=== PATIENT | male | born 1940 | race Caucasian/White ===

== ENCOUNTER 2017-12-30 06:58 | Day surgery (SDC) | payer OTHER ==
[~2017-12-30] VITALS: Ht 182.9 cm; Wt 103.4 kg
[~2017-12-30 06:58] MED LIST: ACET325 PO; ASCO500 PO; ASPI325 PO; ATOR40TA PO; CEFP200 PO; DAILY VALUE1 EACH PO; DICL75ER PO; OXYB5ER PO; Omeprazole20 M1 PO; TAMS.4ER PO
== END 2017-12-30 23:16 | disposition home or self-care (01) ==
LOC: ORSCMMR 06:58 → ORD 09:00 → ORSCMMR 09:00
PROVIDERS: Internal Medicine Gastroenterology
PROC: 0DBN8ZX Excision of Sigmoid Colon, Via Natural or Artificial Opening Endoscopic, Diagnostic (ICD-10-PCS; principal; 2017-12-30 09:00)
DX: K92.1 Melena (principal); K63.5 Polyp of colon; K21.9 Gastro-esophageal reflux disease without esophagitis; K57.30 Diverticulosis of large intestine without perforation or abscess without bleeding; K64.8 Other hemorrhoids; I25.10 Atherosclerotic heart disease of native coronary artery without angina pectoris; Z79.82 Long term (current) use of aspirin; Z79.899 Other long term (current) drug therapy
CPT/HCPCS: J7030

== ENCOUNTER → 2018-01-02 | Outpatient (CLI) | payer OTHER | END | disposition home or self-care (01) | LOC: LAB SHORT 07:24 → PLD 07:24 | DX: L85.8 Other specified epidermal thickening (principal) | CPT/HCPCS: 88305; 88312 ==

== ENCOUNTER → 2018-01-06 | Outpatient (CLI) | payer OTHER | LOC: LAB SHORT 07:54 → PLD 07:54 | DX: D49.2 Neoplasm of unspecified behavior of bone, soft tissue, and skin (principal); D04.4 Carcinoma in situ of skin of scalp and neck | CPT/HCPCS: 88305 ==

== ENCOUNTER → 2019-06-09 | Outpatient (CLI) | payer OTHER | END | disposition home or self-care (01) | LOC: PLD 14:56 → LAB SHORT 14:56 | DX: D04.4 Carcinoma in situ of skin of scalp and neck (principal); L82.1 Other seborrheic keratosis | CPT/HCPCS: 88305; 88342 ==

== ENCOUNTER → 2020-06-02 | Outpatient (CLI) | payer OTHER | END | disposition home or self-care (01) | LOC: PLD 08:03 → LAB SHORT 08:03 | DX: L57.0 Actinic keratosis (principal) | CPT/HCPCS: 88305 ==

== ENCOUNTER → 2020-09-13 | Outpatient (CLI) | payer OTHER | END | disposition home or self-care (01) | LOC: LAB SHORT 07:34 → LAB 07:34 | DX: L90.5 Scar conditions and fibrosis of skin (principal); L08.89 Other specified local infections of the skin and subcutaneous tissue | CPT/HCPCS: 88305 ==

== ENCOUNTER 2022-06-28 07:18 | Day surgery (SDC) | payer OTHER ==
[~2022-06-28] VITALS: Ht 180.3 cm; Wt 102.4 kg
[2022-06-28] MEDS ORDERED: Aspir 8181 MG PO (07:36)
== END 2022-06-28 09:11 | disposition home or self-care (01) ==
LOC: ORSCSDS 07:18
PROVIDERS: Ophthalmology
PROC: 08DK3ZZ Extraction of Left Lens, Percutaneous Approach (ICD-10-PCS; principal; 2022-06-28 08:30)
PROC: 08DJ3ZZ Extraction of Right Lens, Percutaneous Approach (ICD-10-PCS; principal; 2022-06-28 08:30)
DX: H25.12 Age-related nuclear cataract, left eye (principal); I25.10 Atherosclerotic heart disease of native coronary artery without angina pectoris; K21.9 Gastro-esophageal reflux disease without esophagitis; I25.2 Old myocardial infarction; E66.9 Obesity, unspecified; Z68.31 Body mass index [BMI] 31.0-31.9, adult
CPT/HCPCS: J2001; J2250; J3010; J3301; J7040; V2632

== ENCOUNTER 2022-11-19 10:26 | Emergency (ER) | payer OTHER ==
[~2022-11-19] VITALS: Ht 182.9 cm; Wt 101.2 kg
[~2022-11-19 10:26] MED LIST changes: +Aspir 8181 MG PO
[2022-11-19 10:52] LABS: BASOPHILS ABSOLUTE AUTO 0.02 K/mm3 (0.00-0.23); BASOPHILS PERCENT AUTO 0 % (0-2); EOSINOPHILS ABSOLUTE AUTO 0.16 K/mm3 (0.00-0.68); EOSINOPHILS PERCENT AUTO 3 % (0-6); Hemoglobin 12.9 g/dL (13.5-17.5); IMMATURE GRAN ABSOLUTE AUTO 0.01 K/mm3 (0.00-0.10); IMMATURE GRAN PERCENT AUTO 0 % (0-1); LYMPHOCYTES ABSOLUTE AUTO 1.32 K/mm3 (0.84-5.20); LYMPHOCYTES PERCENT AUTO 23 % (21-46); MONOCYTES ABSOLUTE AUTO 0.46 K/mm3 (0.16-1.47); MONOCYTES PERCENT AUTO 8 % (4-13); Mean Corpuscular HGB 29.8 pg (26.0-34.0); Mean Corpuscular HGB Conc 32.3 g/dL (31.5-36.5); Mean Corpuscular Volume 92 fL (80-100); Mean Platelet Volume 9.5 fL (9.1-12.4); NEUTROPHILS ABSOLUTE AUTO 3.67 K/mm3 (1.96-9.15); NEUTROPHILS PERCENT AUTO 65 % (41-73); Platelet Count 265 K/mm3 (150-400); RDW Coefficient Variation 13.4 % (11.7-14.2); RDW Standard Deviation 46.3 fL (35.1-46.3); Red Blood Cell Count 4.33 M/mm3 (4.30-5.90); White Blood Cell Count 5.64 K/mm3 (4.00-11.30)
[2022-11-19 11:29] LABS: Albumin, Blood 3.4 g/dL (3.4-5.0); Bilirubin, Total 0.5 mg/dL (0.1-1.0); Bun/Creatinine Ratio 23.5 (12.0-20.0); Calcium, Blood 8.3 mg/dL (8.5-10.1); Creatinine, Blood 0.94 mg/dL (0.60-1.20); Globulin, Blood 3.5 g/dL (2.2-4.0); Potassium, Blood 4.2 mmol/L (3.5-5.5); Total Protein, Blood 6.9 g/dL (6.4-8.2)
[2022-11-19 13:51] VITALS: BP 135/72
== END 2022-11-19 13:50 | disposition home or self-care (01) ==
LOC: ER 10:26
PROVIDERS: Emergency Medicine
DX: R55 Syncope and collapse (principal); R42 Dizziness and giddiness; Z79.899 Other long term (current) drug therapy; Z79.82 Long term (current) use of aspirin
CPT/HCPCS: 80053; 85025

== ENCOUNTER → 2022-12-12 | Outpatient (CLI) | payer OTHER | END | disposition home or self-care (01) | LOC: PLD 13:30 → LAB SHORT 13:30 | DX: L72.0 Epidermal cyst (principal); L70.0 Acne vulgaris | CPT/HCPCS: 88305 ==

== ENCOUNTER 2023-01-18 15:56 | Observation (INO) | payer OTHER ==
[~2023-01-18] VITALS: Ht 182.9 cm; Wt 98.0 kg
[2023-01-18] MEDS ORDERED: KLONOPIN0.5 M9 PO (18:20)
[2023-01-18 19:17] LABS: Magnesium, Blood 2.6 mg/dL (1.6-2.4)
[2023-01-18 22:29] LABS: Thyroid Stimulating Hormone 1.87 uIU/mL (0.360-4.800)
[2023-01-18 22:30] VITALS: BP 120/60
--- NOTE | 2023-01-18 22:57 | NUR ---
ASSUMPTION OF CARE: PATIENT ALERT AND ORIENTED X 4 NO CONCERNS OR QUESTIONS. PLEASANT . COOPERATIVE WITH CARE. DENIES CHEST PAIN PRESSURE SOB NO DIZZINESS OR LIGHTHEADEDNESS HERE FOR OBSERVATION. PLAN SHOULD BE ECHO AND SEE IF SYNCOPAL EPISODE IS RELATED OR MURMUR/FLUTTER ED DR. RODRIGEZ WAS CORRELATED. PATIENT ON RA SPO2 > 94%. IV IS A FIELD START FLUSHED WILL NEED TO BE CHANGED SHORTLY IT IS RAC AND UNABLE TO CHANGE CAPS. PATIENT AMBULATES WELL, STILL 1 P SBA TO RESTROOM FOR SAFETY. WILL CONTINUE TO MONITOR UNTIL SHIFT CHANGE VSS
[2023-01-19 03:07] VITALS: BP 109/62
--- NOTE | 2023-01-19 03:12 | NUR ---
END OF SHIFT: PATIENT WITH NO CHANGES TWO VOIDS THROUGH THE NIGHT, UNMEASURED, LARGE, PATIENT ORIENTED, CALLED TO BE AMBULATED TO BATHROOM, INDEPENDENTLY. NO SIGNIFICANT EVENTS, EDUCATED ON FIRE/OXYGEN SAFETY. PATIENT AGREES NOTHING IN CLOTHING. PATIENT STILL DENYING SYNCOPE SYMPTOMS OR CHEST PAINS. WILL CONTINUE TO MONITOR
[2023-01-19 05:30] LABS: BASOPHILS ABSOLUTE AUTO 0.01 K/mm3 (0.00-0.23); BASOPHILS PERCENT AUTO 0 % (0-2); EOSINOPHILS ABSOLUTE AUTO 0.17 K/mm3 (0.00-0.68); EOSINOPHILS PERCENT AUTO 3 % (0-6); Hematocrit 43.2 % (37.0-53.0); Hemoglobin 14.2 g/dL (13.5-17.5); IMMATURE GRAN ABSOLUTE AUTO 0.01 K/mm3 (0.00-0.10); IMMATURE GRAN PERCENT AUTO 0 % (0-1); LYMPHOCYTES ABSOLUTE AUTO 1.45 K/mm3 (0.84-5.20); LYMPHOCYTES PERCENT AUTO 24 % (21-46); MONOCYTES ABSOLUTE AUTO 0.69 K/mm3 (0.16-1.47); MONOCYTES PERCENT AUTO 11 % (4-13); Mean Corpuscular HGB 29.6 pg (26.0-34.0); Mean Corpuscular HGB Conc 32.9 g/dL (31.5-36.5); Mean Corpuscular Volume 90 fL (80-100); Mean Platelet Volume 9.6 fL (9.1-12.4); NEUTROPHILS ABSOLUTE AUTO 3.81 K/mm3 (1.96-9.15); NEUTROPHILS PERCENT AUTO 62 % (41-73); Platelet Count 202 K/mm3 (150-400); RDW Coefficient Variation 13.2 % (11.7-14.2); RDW Standard Deviation 44.1 fL (35.1-46.3); Red Blood Cell Count 4.79 M/mm3 (4.30-5.90); White Blood Cell Count 6.14 K/mm3 (4.00-11.30)
[2023-01-19 06:11] LABS: Albumin, Blood 3.2 g/dL (3.4-5.0); Albumin/Globulin Ratio 0.9 (0.8-1.8); Bilirubin, Total 0.7 mg/dL (0.1-1.0); Bun/Creatinine Ratio 25.8 (12.0-20.0); Calcium, Blood 8.2 mg/dL (8.5-10.1); Creatinine, Blood 0.85 mg/dL (0.60-1.20); Globulin, Blood 3.5 g/dL (2.2-4.0); Total Protein, Blood 6.7 g/dL (6.4-8.2)
--- NOTE | 2023-01-19 08:00 | NUR ---
Received report from Raffaele HALE. Patient was sleeping at start of shift and now awake. He is alert and oriented and is able to communicate his needs. He is on RA and sats >90%. He has urinal at bedside and is able to use independently. he has 20ga IV to RAC and is flushed and SL'd. He MAEW. He still states right elbow pain. Denies any dizziness or chest pain.
[2023-01-19 08:38] VITALS: BP 128/64
--- NOTE | 2023-01-19 09:15 | NUR ---
Patient's at bedside. He is finishing breakfast. Echo just arrived. Dr Wylie has been into see patient and possible discharge home today.
[2023-01-19 12:06] VITALS: BP 117/63
--- NOTE | 2023-01-19 12:23 | NUR ---
Echo results are back and Dr Wylie spoke with patient. He has been up to bathroom independnetly and is very stable. See EMR for VS. Dr Wylie is discharging home without any new medications.
--- NOTE | 2023-01-19 12:46 | NUR ---
Patient received written discharge instructions and retyurned understanding. His RAC IV pulled intact and site WNL. He is getting dressed independently and just arrived and is ready to go home.
== END 2023-01-19 13:10 | disposition home or self-care (01) ==
LOC: ER 15:56 → PCU 15:57
PROVIDERS: Family Medicine; Student in an Organized Health Care Education/Training Program; ADMIT Internal Medicine
DX: R55 Syncope and collapse (principal); I35.0 Nonrheumatic aortic (valve) stenosis; I25.10 Atherosclerotic heart disease of native coronary artery without angina pectoris; F41.9 Anxiety disorder, unspecified; N40.0 Benign prostatic hyperplasia without lower urinary tract symptoms; K21.9 Gastro-esophageal reflux disease without esophagitis; M19.90 Unspecified osteoarthritis, unspecified site; R41.82 Altered mental status, unspecified
CPT/HCPCS: 36415; 70450; 73070; 80053; 83735; 83880; 84443; 84484; 85025; 93005; 93010; 93306; 96372; 99285-25; A9270; G0378; J1650

== ENCOUNTER 2024-04-05 19:05 | Emergency (ER) | payer OTHER ==
[~2024-04-05] VITALS: Ht 182.9 cm; Wt 97.5 kg
[~2024-04-05 19:05] MED LIST changes: +KLONOPIN0.5 M9 PO
[2024-04-05 19:06] VITALS: BP 143/71
== END 2024-04-05 20:15 | disposition home or self-care (01) ==
LOC: ER 19:05
DX: S51.811A Laceration without foreign body of right forearm, initial encounter (principal); I25.10 Atherosclerotic heart disease of native coronary artery without angina pectoris; K21.9 Gastro-esophageal reflux disease without esophagitis; N40.0 Benign prostatic hyperplasia without lower urinary tract symptoms; I25.2 Old myocardial infarction; W18.09XA Striking against other object with subsequent fall, initial encounter; Z79.899 Other long term (current) drug therapy; Z79.82 Long term (current) use of aspirin; Z95.1 Presence of aortocoronary bypass graft
CPT/HCPCS: 12002; 99282-25

== ENCOUNTER → 2024-06-23 | Outpatient (CLI) | payer OTHER | LOC: LAB 15:35 → LAB SHORT 15:35 | DX: L03.031 Cellulitis of right toe (principal) | CPT/HCPCS: 87070; 87077; 87147; 87186; 87205 ==

== ENCOUNTER 2025-07-13 21:48 | Emergency (ER) | payer OTHER ==
[~2025-07-13] VITALS: Ht 182.9 cm; Wt 101.6 kg
[2025-07-13] MEDS ORDERED: METOPROLOL SUCC25 MG PO (22:09)
[2025-07-13 22:18] LABS: BASOPHILS ABSOLUTE AUTO 0.02 K/mm3 (0.00-0.23); BASOPHILS PERCENT AUTO 0 % (0-2); EOSINOPHILS ABSOLUTE AUTO 0.15 K/mm3 (0.00-0.68); EOSINOPHILS PERCENT AUTO 2 % (0-6); Hematocrit 36.2 % (37.0-53.0); Hemoglobin 11.6 g/dL (13.5-17.5); IMMATURE GRAN ABSOLUTE AUTO 0.01 K/mm3 (0.00-0.10); IMMATURE GRAN PERCENT AUTO 0 % (0-1); LYMPHOCYTES ABSOLUTE AUTO 2.67 K/mm3 (0.84-5.20); LYMPHOCYTES PERCENT AUTO 42 % (21-46); MONOCYTES ABSOLUTE AUTO 0.83 K/mm3 (0.16-1.47); MONOCYTES PERCENT AUTO 13 % (4-13); Mean Corpuscular HGB Conc 32.0 g/dL (31.5-36.5); Mean Corpuscular Volume 91 fL (80-100); NEUTROPHILS ABSOLUTE AUTO 2.65 K/mm3 (1.96-9.15); NEUTROPHILS PERCENT AUTO 42 % (41-73); NRBC ABSOLUTE 0.00 K/mm3 (0.00-0.02); NRBC Auto 0.0 /100 WBC (0.0-0.2); Platelet Count 253 K/mm3 (150-400); RDW Coefficient Variation 14.1 % (11.7-14.2); RDW Standard Deviation 47.3 fL (35.1-46.3)
[2025-07-13 22:41] LABS: Alanine Aminotransfer (ALT/SGP 21.0 U/L (12-78); Albumin, Blood 3.5 g/dL (3.4-5.0); Albumin/Globulin Ratio 1.0 (0.8-1.8); Anion Gap 7.0 mmol/L (3-11); Aspartate Aminotrans (AST/SGOT 19.0 U/L (12-37); Bilirubin, Total 0.4 mg/dL (0.1-1.0); Blood Urea Nitrogen 27.0 mg/dL (8-24); CO2, Blood 28.0 mmol/L (21-32); Calcium, Blood 8.5 mg/dL (8.5-10.1); Chloride, Blood 106.0 mmol/L (98-108); Creatinine, Blood 1.06 mg/dL (0.60-1.20); Globulin, Blood 3.4 g/dL (2.2-4.0); Glucose, Blood 141.0 mg/dL (70-99); Potassium, Blood 3.7 mmol/L (3.5-5.5); Sodium, Blood 137.0 mmol/L (136-145); Total Protein, Blood 6.9 g/dL (6.4-8.2)
[2025-07-14 00:45] VITALS: BP 162/71
== END 2025-07-14 00:51 | disposition home or self-care (01) ==
LOC: ER 21:48
PROVIDERS: Emergency Medicine
DX: R55 Syncope and collapse (principal); K21.9 Gastro-esophageal reflux disease without esophagitis; Z79.899 Other long term (current) drug therapy
CPT/HCPCS: 71045; 80053; 84484; 85025; 93005; 93010; 99284-25